=== PATIENT | female | born 1990 | race Caucasian/White ===

== ENCOUNTER 2018-07-16 19:57 | Emergency (ER) | payer OTHER ==
[~2018-07-16] VITALS: Ht 157.5 cm; Wt 127.0 kg
[2018-07-16 20:14] VITALS: BP 140/83
--- NOTE | 2018-07-16 20:59 | PHYS DOC ---
Past Medical History Past Medical History: No Pertinent History Past Surgical History: No Surgical History Alcohol Use: Occasionally Drug Use: None Adult General Chief Complaint Chief Complaint: HEADACHE HPI HPI She is a 28-year-old female who presents with complaint of headache in the left parietal occipital area. She describes the headache is dull and throbbing. She states that currently the pain is a 4 out of 10. She indicates that she has been nauseated but is 12 weeks . She also indicates that she has some pain in her upper back and neck as well as pain in her left mandibular third molar area. Patient states that she is worried that she might be getting a tooth abscess. She denies any fever. Patient denies any photophobia but does admit to some phonophobia. Review of Systems Review of Systems Constitutional: Denies fever or chills [] Eyes: Denies change in visual acuity, redness, or eye pain [] HENT: Complains of dental pain[] Respiratory: Denies cough or shortness of breath [] Cardiovascular: No additional information not addressed in HPI [] GI: Denies abdominal pain. Complains of nausea without vomiting. [] Musculoskeletal: Complains of upper back and neck pain [] Neurologic: Complains of headache without focal weakness or sensory changes [] All other systems were reviewed and found to be within normal limits, except as documented in this note. Current Medications Current Medications Current Medications Medications (Trade) Dose Ordered Sig/[facility] Start Time Stop Time Status Last Admin Dose Admin Acetaminophen/ Codeine Phosphate (Tylenol #3) 1 tab 1X ONCE 07/16/18 21:00 07/16/18 21:01 UNV Ondansetron HCl (Zofran Odt) 4 mg 1X ONCE 07/16/18 21:00 07/16/18 21:01 UNV Physical Exam Physical Exam Constitutional: Well developed, well nourished, no acute distress, non-toxic appearance. [] HENT: Normocephalic, atraumatic, bilateral external ears normal, oropharynx moist, no oral exudates, nose normal. [] Eyes: PERRLA, EOMI, conjunctiva normal, no discharge. [] Neck: Normal range of motion, no tenderness, supple, no stridor. [] Cardiovascular: Regular rate and rhythm[] Lungs & Thorax: Bilateral breath sounds clear to auscultation [] Abdomen: Bowel sounds normal, soft, no tenderness. [] Skin: Warm, dry, no erythema, no rash. [] Extremities: No tenderness, no cyanosis, no clubbing, ROM intact, no edema. [] Neurologic: Alert and oriented X 3, no focal deficits noted. [] Current Patient Data Vital Signs Vital Signs Date Time Temp Pulse Resp B/P (MAP) Pulse Ox O2 Delivery O2 Flow Rate FiO2 07/16/18 20:14 97.9 104 18 140/83 (102) 99 Room Air 97.9 EKG EKG [] Radiology/Procedures Radiology/Procedures [] Course & Med Decision Making Course & Med Decision Making Pertinent Labs and Imaging studies reviewed. (See chart for details) [] Dragon Disclaimer Dragon Disclaimer This electronic medical record was generated, in whole or in part, using a voice recognition dictation system. Departure Departure Impression: Primary Impression: Acute headache Disposition: HOME, SELF-CARE Condition: STABLE Referrals: NO PCP (PCP) Patient Instructions: Headache, FAQs, Impacted Molar Scripts Acetaminophen With Codeine (TYLENOL WITH CODEINE #3 TABLET) 1 Each Tablet 1 TAB PO PRN Q6HRS PRN for PAIN, #12 TAB Prov: KIT BAUTISTA Jr. DO 07/16/18 Ondansetron Hcl (ZOFRAN) 4 Mg Tablet 4 MG PO PRN TID PRN for NAUSEA, #15 nausea/vomiting Prov: KIT BAUTISTA Jr. DO 07/16/18 Problem Qualifiers Primary Impression: Acute headache Headache type: unspecified Intractability: not intractable Qualified Codes : R51 - Headache KIT BAUTISTA Jr. DO Jul 16, 2018 20:59
[2018-07-16] MEDS ORDERED: ACETAMINOPHEN/CODEINE 300/30MG TABLET. PO ONE (21:00)
[2018-07-16] MEDS ORDERED: ONDANSETRON ODT 4 MG TAB.RAPDIS. PO ONE (21:00)
[2018-07-16] MEDS ORDERED: ONDA4TAB7 PO (21:09)
[2018-07-16] MEDS ORDERED: ACET-704 PO (21:09)
[2018-07-16] MEDS ORDERED: CEPH-264 PO (21:20)
== END 2018-07-16 21:22 | disposition home or self-care (01) ==
LOC: ER 19:57
DX: R51 Headache (principal)
CPT/HCPCS: 99283; Q0162

== ENCOUNTER 2018-12-06 19:07 | Observation (INO) | payer MEDICAID ==
[~2018-12-06 19:07] MED LIST: ACET-704 PO; CEPH-264 PO; ONDA4TAB7 PO
[2018-12-06] MEDS ORDERED: IV RINGERS,LACTATED 1000ML 1,000 ML IV PRN (19:15)
[2018-12-06 19:54] LABS: BILIRUBIN,URINE NEGATIVE (NEG); CLARITY,URINE CLEAR; COLOR,URINE YELLOW; NITRITE,URINE NEGATIVE (NEG); PROTEIN,URINE NEGATIVE (NEG-TRACE); UROBILINOGEN,URINE 0.2 mg/dL (0.2 mg/dL)
[2018-12-06 19:58] LABS: BARBITURATES NEG (NEG); BENZODIAZEPINES NEG (NEG); CANNABINOIDS NEG (NEG); COCAINE NEG (NEG); METHADONE NEG (NEG); OPIATES NEG (NEG); PHENCYCLIDINE NEG (NEG)
[2018-12-06 19:59] LABS: AMPHETAMINE/METHAMPHETAMINE NEG (NEG)
[2018-12-06 20:04] LABS: BACTERIA,URINE MODERATE /HPF (0-FEW); RBC,URINE 0 /HPF (0-2); SQUAMOUS EPITHELIAL CELL,UR MANY /LPF
--- NOTE | 2018-12-06 21:08 | RAD ---
Ultrasound biophysical profile: Reason for examination: Decreased movement for 2 weeks. Estimated gestational age clinically is 32 weeks 0 days with estimated date of confinement of 01/31/2019. Single viable intrauterine gestation is present with the fetus in cephalic presentation. Placenta is posterior. Cardiac activity is seen with a cardiac rate of 140 bpm. Amniotic fluid index is 17.7 cm. Biophysical profile scores are 2 for tone, 2 for motion, 2 for breathing movement and 2 for amniotic fluid volume. With a total biophysical profile score of 8 out of 8. IMPRESSION: Single viable intrauterine gestation with biophysical profile score of 8 out of 8. Electronically signed by: Janay Schwartz MD (12/06/2018 9:05 PM) [facility]
== END 2018-12-06 21:15 | disposition home or self-care (01) ==
LOC: 3 SO LND 19:07
PROVIDERS: ADMIT Specialist; ATTEND Specialist
DX: O36.8130 Decreased fetal movements, third trimester, not applicable or unspecified (principal); O26.893 Other specified pregnancy related conditions, third trimester; R10.2 Pelvic and perineal pain; O99.89 Other specified diseases and conditions complicating pregnancy, childbirth and the puerperium; M25.552 Pain in left hip; M54.9 Dorsalgia, unspecified; M25.551 Pain in right hip; Z3A.32 32 weeks gestation of pregnancy
CPT/HCPCS: 76819; 80307; 81001; 87086; G0378; G0379; 59025

== ENCOUNTER 2019-06-01 22:50 | Emergency (ER) | payer SELFPAY ==
[~2019-06-01] VITALS: Ht 157.5 cm; Wt 113.4 kg
[2019-06-01 23:21] VITALS: BP 152/107
--- NOTE | 2019-06-02 00:08 | RAD ---
Transabdominal and transvaginal ultrasound the pelvis. HISTORY: Mirena IUD lower than normal. Transabdominal ultrasound was performed. The bladder was not well-distended. Uterus is not optimally evaluated. Ovaries were not identified. Transvaginal imaging was performed for further evaluation. The IUD appears elongated possibly not configured in normal T appearance but longitudinally oriented throughout. The IUD extends to the lower uterine segment or into the cervix. There is no uterine mass. Right ovary was normal measuring 2.3 x by 2.6 x 3.8 cm. Left ovary was not identified. There are small follicles in the right ovary. IMPRESSION: 1. Elongated IUD not the typical T appearance. 2. Normal right ovary. 3. Left ovary not identified. Electronically signed by: Robin Palma MD (06/02/2019 12:05 AM) [facility]
--- NOTE | 2019-06-02 00:58 | PHYS DOC ---
Past Medical History Past Medical History: No Pertinent History (ALFONSO SUAREZ APRN) Past Surgical History: No Surgical History (ALFONSO SUAREZ APRN) Alcohol Use: Occasionally Drug Use: None (ALFONSO SUAREZ APRN) Adult General Chief Complaint Chief Complaint: VAGINAL PROBLEM HPI HPI Patient is a 28 year old female who presents to the ED today complaining her Mirena could've fallen out, she states the strings feel lower than normal. She's had the Mirena since January 2019. Denies any other symptoms. (ALFONSO SUAREZ APRN) Review of Systems Review of Systems Constitutional: Denies fever or chills [] GI: Reports merina hanging lower than normal Denies abdominal pain, nausea, vomiting, bloody stools or diarrhea [] : Denies dysuria or hematuria [] Musculoskeletal: Denies back pain or joint pain [] Integument: Denies rash or skin lesions [] Neurologic: Denies headache, focal weakness or sensory changes [] All other systems were reviewed and found to be within normal limits, except as documented in this note. (ALFONSO SUAREZ APRN) Allergies Allergies Allergies Coded Allergies Type Severity Reaction Last Updated Verified No Known Drug Allergies 07/16/18 No (AMBER STEPHENSON DO) Physical Exam Physical Exam Constitutional: Well developed, well nourished, no acute distress, non-toxic appearance. [] Pelvic exam Overweight patient, external vagina with Mirena string, cervix is vis, Mirena itself not visualized. Trace amount of brownish discharge in the vaginal vault. Skin: Warm, dry, no erythema, no rash. [] Back: No tenderness, no CVA tenderness. [] Extremities: No tenderness, no cyanosis, no clubbing, ROM intact, no edema. [] Neurologic: Alert and oriented X 3, normal motor function, normal sensory function, no focal deficits noted. [] Psychologic: Affect normal, judgement normal, mood normal. [] (ALFONSO SUAREZ APRN) Current Patient Data Vital Signs Vital Signs Date Time Temp Pulse Resp B/P (MAP) Pulse Ox O2 Delivery O2 Flow Rate FiO2 06/01/19 23:21 98.3 95 19 152/107 (122) 99 Room Air 98.3 (AMBER STEPHENSON DO) Lab Values Laboratory Tests Test 06/01/19 23:19 POC Urine HCG, Qualitative Hcg negative (Negative) (AMBER STEPHENSON DO) EKG EKG [] (ALFONSO SUAREZ APRN) Radiology/Procedures Radiology/Procedures []PROCEDURE: PELVIS W/TV Transabdominal and transvaginal ultrasound the pelvis. HISTORY: Mirena IUD lower than normal. Transabdominal ultrasound was performed. The bladder was not well-distended. Uterus is not optimally evaluated. Ovaries were not identified. Transvaginal imaging was performed for further evaluation. The IUD appears elongated possibly not configured in normal T appearance but longitudinally oriented throughout. The IUD extends to the lower uterine segment or into the cervix. There is no uterine mass. Right ovary was normal measuring 2.3 x by 2.6 x 3.8 cm. Left ovary was not identified. There are small follicles in the right ovary. IMPRESSION: 1. Elongated IUD not the typical T appearance. 2. Normal right ovary. 3. Left ovary not identified. Electronically signed by: Kelsi Palma MD (06/02/2019 12:05 AM) [facility] DICTATED and SIGNED BY: KELSI PALMA MD DATE: 06/02/19 0005 (ALFONSO SUAREZ APRN) Course & Med Decision Making Course & Med Decision Making Pertinent Labs and Imaging studies reviewed. (See chart for details) This is a 28-year-old female patient presenting to the ED today concerned her IUD could've fallen out. IUD strings were visualized hanging lower than normal. The IUD itself was not visualized on physical exam. Negative urine hCG. Pelvic ultrasound -The IUD appears elongated possibly not configured in normal T appearance but longitudinally oriented throughout. The IUD extends to the lower uterine segment or into the cervix. There is no uterine mass. I requested patient follow-up with an INTELLIGENCE OFFICER BASIC for possible removal of this IUD. We talked about using backup method of family planning until seen by OBGYN (ALFONSO SUAREZ APRN) Dragon Disclaimer Dragon Disclaimer This electronic medical record was generated, in whole or in part, using a voice recognition dictation system. (ALFONSO SUAREZ APRN) Departure Departure Impression: Primary Impression: Malpositioned IUD Disposition: HOME, SELF-CARE Condition: STABLE Referrals: NO PCP (PCP) AMBER SOLER MD follow up with your OBGYN in the course of this week Additional Instructions: You were evaluated in the emergency room, your IUD is hanging lower than normal please use back method of family planning until seen by the OBGYN. 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 I was available for consultation as needed at all times during the patient's visit in the emergency department. I agree with the clinical impression, plan and disposition. (AMBER STEPHENSON DO) Problem Qualifiers Primary Impression: Malpositioned IUD Encounter type: initial encounter Qualified Codes: T83.32XA - Displacement of intrauterine contraceptive device, initial encounter ALFONSO SUAREZ APRN Jun 02, 2019 00:58 AMBER STEPHENSON DO Jun 03, 2019 19:22
== END 2019-06-02 01:19 | disposition home or self-care (01) ==
LOC: ER 22:50
DX: T83.32XA Displacement of intrauterine contraceptive device, initial encounter (principal); X58.XXXA Exposure to other specified factors, initial encounter; Y93.89 Activity, other specified; Y92.89 Other specified places as the place of occurrence of the external cause; Y99.8 Other external cause status
CPT/HCPCS: 76830; 76856; 81025; 99284

== ENCOUNTER 2019-11-22 19:34 | Emergency (ER) | payer OTHER ==
[~2019-11-22] VITALS: Ht 157.5 cm; Wt 127.2 kg
--- NOTE | 2019-11-22 21:53 | PHYS DOC ---
Past Medical History Past Medical History: No Pertinent History (AMBER CALVILLO APRN) Past Surgical History: (AMBER CALVILLO APRN) Smoking Status: Current Every Day Smoker Additional Information: 1 ppd Alcohol Use: Occasionally Drug Use: None (AMBER CALVILLO APRN) General Adult EDM: Chief Complaint: BACK PAIN OR INJURY HPI: HPI: Patient is a 29 year old female who presents with complaints of mid back pain after feeling her back pop while lifting a 40 pound box from the floor at work at approximately 0840 this morning. Patient states at approximately 9:00 this morning her pain was a 9-10 out of 10, which she took 1000 mg of Tylenol which seemed to help with her pain but only for about an hour. Currently she rates her pain an 8 out of 10 while sitting, but when standing it raises to a 9 to a 10 out of 10. 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 Patient states that her pain never went away patient states the pain is in her lower to mid back where she felt the pop and slowly started radiating up her spine to just below her neck and out towards her shoulders. Patient denies any sensations that travel down her legs or down to her lower back center spine, but states that she does have some mild pain just lateral to her L-spine on both sides. Patient denies loss of bowel or bladder. Patient denies any ti ngly sensations or numbing sensations or abnormal feelings to her upper or lower extremities. Patient denies nausea vomiting or diarrhea. Patient denies chest pain or shortness of breath. Patient denies cough or throat pain or visual problems or headaches. Patient denies any bladder problems or vaginal discharge. Patient denies any swelling. Patient denies recent changes in food or fluid intake. Patient denies any recent stressful situations in her life. Patient denies any family members at home with the same symptoms. Patient states while she has had aches and pains to her back after working long hours, her pain has always been relieved by taking Tylenol and/or Motrin [id number]. Patient states she has never hurt her back before. (AMBER CALVILLO APRN) HPI: Thoracic back pain suddenly while at work. Work-up included x-ray imaging--- xray without acute fractures. (JAYCEE CORMIER I DO) Review of Systems: Review of Systems: Constitutional: Denies fever or chills. [] Eyes: Denies change in visual acuity. [] HENT: Denies nasal congestion or sore throat. [] Respiratory: Denies cough or shortness of breath. [] Cardiovascular: Denies chest pain or edema. [] GI: Denies abdominal pain, nausea, vomiting, bloody stools or diarrhea. [] : Denies dysuria. [] Musculoskeletal: Denies joint pain. Patient complains of lower mid back pain that radiates up to her lower neck. Integument: Denies rash. [] Neurologic: Denies headache, focal weakness or sensory changes. [] Endocrine: Denies polyuria or polydipsia. [] Lymphatic: Denies swollen glands. [] Psychiatric: Denies depression or anxiety. [] (AMBER CALVILLO APRN) Heart Score: Risk Factors: Risk Factors: DM, Current or recent (<one month) smoker, HTN, HLP, family histo ry of CAD, obesity. Risk Scores: Score 0 - 3: 2.5% MACE over next 6 weeks - Discharge Home Score 4 - 6: 20.3% MACE over next 6 weeks - Admit for Clinical Observation Score 7 - 10: 72.7% MACE over next 6 weeks - Early Invasive Strategies (AMBER CALVILLO APRN) Family History: Family History: No significant family history related to this ER visit today. (AMBER CALVILLO APRN) Current Medications: Current Medications Medications (Trade) Dose Ordered Sig/Jean Start Time Stop Time Status Last Admin Dose Admin Ketorolac Tromethamine (Toradol Im) 60 mg 1X ONCE 11/22/19 21:45 11/22/19 21:46 UNV (AMBER CALVILLO APRN) Allergies: Allergies: Allergies Coded Allergies Type Severity Reaction Last Updated Verified No Known Drug Allergies 07/16/18 No (AMBER CALVILLO APRN) Physical Exam: PE: Constitutional: Well developed, well nourished, no acute distress, non-toxic appearance. [] HENT: Normocephalic, atraumatic, bilateral external ears normal, oropharynx moist, no oral exudates, nose normal. [] Eyes: PERRLA, EOMI, conjunctiva normal, no discharge. [] Neck: Normal range of motion, no tenderness, supple, no stridor. [] Cardiovascular:Heart rate regular rhythm, no murmur [] Lungs & Thorax: Bilateral breath sounds clear to auscultation [] Abdomen: Bowel sounds normal, soft, no tenderness, no masses, no pulsatile masses. [] Skin: Warm, dry, no erythema, no rash. [] Back: Tenderness to palpation from approximately L1 superiorly to approximately C6 with tenderness to palpation laterally to the left and right of this area and inferiorly to lumbar section, no center L-spine pain to palpation below the level of L1, no pain superior to approximately C6 at about no CVA tenderness. [] Extremities: No tenderness, no cyanosis, no clubbing, ROM intact, no edema. [] Neurologic: Alert and oriented X 3, normal motor function, normal sensory function, no focal deficits noted. [] Psychologic: Affect normal, judgement normal, mood normal. [] (AMBER CALVILLO APRN) Current Patient Data: Vital Signs: Vital Signs Date Time Temp Pulse Resp B/P (MAP) Pulse Ox O2 Delivery O2 Flow Rate FiO2 6/30/20 20:40 99.9 91 20 159/102 (121) 98 Room Air 99.9 (AMBER CALVILLO APRN) EKG: EKG: [] (AMBER CALVILLO APRN) Radiology/Procedures: Radiology/Procedures: [] (AMBER CALVILLO APRN) Course & Med Decision Making: Course & Med Decision Making Pertinent Labs and Imaging studies reviewed. (See chart for details) [] (AMBER CALVILLO APRN) Course & Med Decision Making Patient patient will be discharged home with prescription Flexeril and Ultram. Patient advised to take [id number] Tylenol and Motrin. Patient advised to follow-up with Workmen's Comp. (JAYCEE CORMIER DO) Jorge Disclaimer: Jorge Disclaimer: This electronic medical record was generated, in whole or in part, using a voice recognition dictation system. (AMBER CALVILLO APRN) Departure Departure Impression: Primary Impression: Back strain Disposition: 01 HOME, SELF-CARE Condition: STABLE Referrals: NO PCP (PCP) Patient Instructions: Back Pain, Adult Scripts Cyclobenzaprine Hcl (CYCLOBENZAPRINE HCL) 10 Mg Tablet 10 MG PO TID, #20 TAB Prov: JAYCEE CORMIER I DO 11/22/19 Tramadol Hcl (ULTRAM) 50 Mg Tablet 1 TAB PO PRN Q6HRS PRN for pain MDD 4 Tablet(s) for 7 Days, #20 TAB 0 Refills Prov: JAYCEE CORMIER DO 11/22/19 Justicifation of Admission Dx: Justifications for Admission: Justification of Admission Dx: N/A (AMBER CALVILLO APRN) AMBER CALVILLO APRN Nov 22, 2019 21:53 JAYCEE CORMIER DO Nov 22, 2019 23:10
[2019-11-22] MEDS ORDERED: KETOROLAC 60 MG/2 ML VIAL. IM ONE (22:00)
[2019-11-22 22:05] LABS: BILIRUBIN,URINE NEGATIVE (NEG); CLARITY,URINE CLEAR; COLOR,URINE YELLOW; NITRITE,URINE NEGATIVE (NEG); PH,URINE 5.5 (<5.0-8.0); PROTEIN,URINE NEGATIVE (NEG-TRACE); UROBILINOGEN,URINE 0.2 mg/dL (0.2 mg/dL)
[2019-11-22 22:15] LABS: BACTERIA,URINE MODERATE /HPF (0-FEW); SQUAMOUS EPITHELIAL CELL,UR MOD /LPF
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
[2019-11-22 23:04] VITALS: BP 158/92
[2019-11-22] MEDS ORDERED: TRAM-48 PO (23:10)
[2019-11-22] MEDS ORDERED: CYCL10TA2 PO (23:10)
== END 2019-11-22 23:19 | disposition home or self-care (01) ==
LOC: ER 19:34
DX: S39.012A Strain of muscle, fascia and tendon of lower back, initial encounter (principal); F17.200 Nicotine dependence, unspecified, uncomplicated; Z98.890 Other specified postprocedural states; X50.0XXA Overexertion from strenuous movement or load, initial encounter; Y93.89 Activity, other specified; Y92.89 Other specified places as the place of occurrence of the external cause; Y99.0 Civilian activity done for income or pay
CPT/HCPCS: 72040; 72072; 72100; 81001; 81025; 87086; 96372; 99284; J1885